=== PATIENT | female | born 1990 | race Caucasian/White ===

== ENCOUNTER 2016-07-22 15:20 | Emergency (ER) | payer SELFPAY ==
[~2016-07-22] VITALS: Ht 170.2 cm; Wt 66.0 kg
[2016-07-22 15:20] VITALS: Ht 170.2 cm; Wt 66.0 kg
[~2016-07-22 15:20] MED LIST: NO ROUTINE MEDS
[2016-07-22] MEDS ORDERED: PREN1TAB73 PO (15:54)
--- NOTE | 2016-07-22 16:02 | ERPDOC ---
Departure Disposition Decision Date: Jul 22, 2016 Disposition Decision Time: 17:22 (HAYLEY LU APRN) Disposition: 01 DISCHARGED HOME, SELF-CARE Impression Impression (KERWINHAYLEY SCHMITZ APRN) Impression: Primary Impression: Vaginal bleeding in Trimester: first trimester Qualified Codes: O46.91 - Antepartum hemorrhage, unspecified, first trimester Severity: Moderate (HAYLEY LU APRN) Condition: Stable Seen By: Mid-level only (HAYLEY LU APRN) Referrals: [facility] (Family) Patient Instructions: First Trimester Vaginal Bleed (ED) Problems/Meds/Labs Reviewed?: Yes Medications reviewed and manag: Yes (HAYLEY LU APRN) Additional Instructions: US today does show a live in the uterus. I do want you to establish with an NUT PROCESS HELPER when you are able to. Labs today are normal. Make sure that you are drinking plenty of fluids at home and resting. Pelvic rest until follow up with your NUT PROCESS HELPER which means nothing into the vagina until follow up including tampons or sexual intercourse. May use the promethazine as needed for nausea. Return to Er with severe abdominal pain or bleeding that is saturating more than 1 pad per hour. Follow up care ordered?: Yes Mental Status: Alert (HAYLEY LU APRN) Scripts Promethazine HCl (Promethazine HCl) 25 Mg Tablet 1 TAB PO Q8H Y for NAUSEA, #10 TAB 0 Refills Prov: KERWINHAYLEY SCHMITZ APRN 07/22/16 HPI - Female General Chief Complaint: Related Problems Stated Complaint: 8 WEEKS /SPOTTING Time Seen by Provider: 15:44 Source: patient Exam Limitations: no limitations (HAYLEY LU APRN) Time Seen by Provider: 15:44 (TAYLOR RICHARDSON MD) HPI - Female Initial Comments She presents to ER today for evaluation of spotting that started after she got out of the shower today. Her LMP was 05/27/16 and she has had positive testing at home. This would make her 7 weeks and 5 days. She is a with 3 miscarriages in the past. Has had some mild lower abdominal pain. Denies any urinary symptoms, vaginal discharge, or fever/chills. She has not established with an NUT PROCESS HELPER so far. Review of old charts does show blood type as A positive. Occurred At: home Onset: Gradual Duration: 1/2 hour Severity/Quality: sharpness (lower abdomen) Radiation: none Associated Symptoms: abdominal pain, DENIES: diaphoresis, dysuria, fever/chills , loss of bladder control, lower back pain, lumps, mass, nausea/vomiting, nocturia, polyuria, swelling, syncope, urinary frequency Hx of Similar Symptoms: No Is Pt now?: Yes Hx Last Menstrual Period: 05/27/16 : 5 Para: 1 (NOLD,HAYLEY N EXTENSION DIVISION DIRECTOR) Allergies: Coded Allergies: Penicillins (Verified Allergy, Severe, 09/14/15) amoxicillin (Verified Allergy, Unknown, 09/14/15) Past History Patient Surgical History section x1 (NOLD,HAYLEY N EXTENSION DIVISION DIRECTOR) Past Medical History Hx Echocardiogram: No Female: UTI Musculoskeletal: back pain Psychological: depression (NOLD,HAYLEY N EXTENSION DIVISION DIRECTOR) Surgical History Reproductive/: D&C, (NOLD,HAYLEY N EXTENSION DIVISION DIRECTOR) Family History Family PMH: FOUND: COPD (NOLD,HAYLEY N EXTENSION DIVISION DIRECTOR) Vaccines Hx Influenza Vaccination: Yes (2013) (NOLD,HAYLEY N EXTENSION DIVISION DIRECTOR) Social History # of Packs/Tins per Day: 1 # of Years: 8 Sexuality: male partner (NOLD,HAYLEY N EXTENSION DIVISION DIRECTOR) Review of Systems Constitutional Constitutional: DENIES: chills, dizziness, fatigue, fever, weakness (NOLD, HAYLEY N EXTENSION DIVISION DIRECTOR) Cardiovascular Cardiac: DENIES: chest pain, orthopnea Rhythm/Rate: DENIES: irregular beat, palpitations (NOLD,HAYLEY N EXTENSION DIVISION DIRECTOR) Pulmonary Respiratory: DENIES: cough, dyspnea, sputum, tachypnea (NOLD,HAYLEY N EXTENSION DIVISION DIRECTOR) GI Upper Abdomen: DENIES: nausea, pain, vomiting Lower Abdomen: pain, DENIES: constipation, diarrhea (NOLD,HAYLEY N EXTENSION DIVISION DIRECTOR) General: DENIES: discharge, dysuria, frequency, hematuria, urgency (NOLD, HAYLEY N EXTENSION DIVISION DIRECTOR) Integumentary Skin: DENIES: rash (NOLD,HAYLEY N EXTENSION DIVISION DIRECTOR) Neurological General: DENIES: headache, numbness, tingling, weakness (NOLD,HAYLEY N EXTENSION DIVISION DIRECTOR) Physical Exam General General Nourishment: well nourished, well developed, appears stated age, no acute distress, adult (HAYLEY LU APRN) Vitals and Pain First Documented Vital Signs Date Time Temp Pulse Resp B/P Pulse Ox O2 Delivery O2 Flow Rate FiO2 07/22/16 15:20 98.1 79 17 119/63 100 Room Air (TAYLOR RICHARDSON MD) Vitals and Pain Weight: Kilograms: 66.000 Height (feet): 5 Height (inches): 7.00 Triage Pain Scale: (HAYLEY LU APRN) Normal Exams: Neck: Full range of motion, without adenopathy, JVD, bruits or thyromegaly Chest/Resp: Clear all [place], with good airflow, and symmetry bilaterally CV: Regular rate and rhythm, without murmur or gallop, Pulses 2+ all extremities, capillary refill, <2 seconds all ext., no pedal edema noted Abdomen: Bowel sounds positive, soft, non-tender, non-distended, no hepatosplenomegaly, masses or bruits noted Lymphatic: No lymphadenopathy, or lymphedema noted Integumentary: No rashes, hives, or bruising noted Neurologic: Patient is alert, and oriented Psychiatric: Patient exhibits, appropriate attention, emotion and affect (HAYLEY LU APRN) Differential Diagnoses Considering: Ovarian Cyst, Ovarian Torsion, PID, Ectopic , New Diagnosis, , UTI (HAYLEY LU APRN) Progress Results/Orders Orders Procedure Category Date Status Time LAB 07/22/16 Complete Qualitative, Urine 15:43 Hcg-Quantitative LAB 07/22/16 Complete Cbc W/Auto LAB 07/22/16 Complete Diff-Reflex Manual Bmp - Basic Metabolic LAB 07/22/16 Complete Panel Ua, Dip Wreflex LAB 07/22/16 Complete Microsc & Kiln Burner 16:08 Us Ob Transvaginal US 07/22/16 Resulted (TAYLOR RICHARDSON MD) Lab Results Laboratory Tests Test 07/22/16 15:51 07/22/16 16:08 07/22/16 16:21 Urine Test Positive Urine Collection Type Urine Color Yellow Urine Turbidity Slt cldy Urine pH 6.5 Urine Specific [place] 1.025 Urine Protein Negative Urine Glucose (UA) Negative Urine Ketones Trace Urine Blood Negative Urine Nitrite Negative Urine Bilirubin Negative Urine Urobilinogen 0.2EU/DL Urine Leukocyte Esterase Negative Urinalysis Comment Microscopic not ind. White Blood Count 7.6T/MM3 Red Blood Count 3.88M/MM3 Hemoglobin 11.8GM/DL Hematocrit 34.6% Mean Corpuscular Volume 89.2UM3 Mean Corpuscular Hemoglobin 30.4UUG Mean Corpuscular Hemoglobin Concent 34.1GM/DL RDW Standard Deviation 37.5FL Platelet Count 139T/MM3 Mean Platelet Volume 12.0UM3 Immature Granulocyte % (Auto) 0.1% Neutrophils (%) (Auto) 69.8% Lymphocytes (%) (Auto) 21.6% Monocytes (%) (Auto) 6.9% Eosinophils (%) (Auto) 1.3% Basophils (%) (Auto) 0.3% Absolute Immature Granulocyte (auto 0.01T/MM3 Absolute Neutrophils (auto) 5.3T/MM3 Absolute Lymphocytes (auto) 1.6T/MM3 Absolute Monocytes (auto) 0.5T/MM3 Absolute Eosinophils (auto) 0.1T/MM3 Absolute Basophils (auto) 0.0T/MM3 Turbidity < 20 Sodium Level 142MEQ/L Potassium Level 4.1MEQ/L Chloride Level 108MEQ/L Carbon Dioxide Level 25MEQ/L Anion Gap 9MEQ/L Blood Urea Nitrogen 6.0MG/DL Creatinine 0.6MG/DL Glomerular Filtration Rate Calc 122 BUN/Creatinine Ratio 10RATIO Glucose Level 85MG/DL Calculated Osmolality 270MOSM/KG Calcium Level 9.1MG/DL Icterus Index < 2 Beta HCG, Quantitative 086595sMG/mL Chemistry Specimen Hemolysis < 15 (TAYLOR RICHARDSON MD) Progress Progress US does show a single live intrauterine . CBC and BMP are normal. U/A is negative. HCG is above 174,000. She does request medication for nausea. Will send her home with promethazine. F/U with NUT PROCESS HELPER as needed. (HAYLEY LU APRN) Ultrasound US : Reason for Exam: vaginal bleeding in Ultrasound: Pelvis US Interpretation: Normal (Single live intrauterine ) (HAYLEY LU APRN) HAYLEY LU APRN Jul 22, 2016 16:02 TAYLOR RICHARDSON MD Jul 24, 2016 10:20
--- NOTE | 2016-07-22 16:27 | NUR ---
REPORT RECEIVED FROM KELLY CHATMAN. CARE ASSUMED.
[2016-07-22 16:35] LABS: BASOPHILS % (AUTO) 0.3 % (0-2); EOSINOPHILS # (AUTO) 0.1 T/MM3 (0-0.5); EOSINOPHILS % (AUTO) 1.3 % (0-4); HCT - HEMATOCRIT 34.6 % (36-46); HGB - HEMOGLOBIN 11.8 GM/DL (12-16); IMMATURE GRANULOCYTE # (AUTO) 0.01 T/MM3 (0.00-0.03); IMMATURE GRANULOCYTE % (AUTO) 0.1 % (0.0-0.5); LYMPHOCYTES # (AUTO) 1.6 T/MM3 (1-4.8); LYMPHOCYTES % (AUTO) 21.6 % (23-45); MEAN CORPUSCULAR HGB 30.4 UUG (26-34); MEAN CORPUSCULAR HGB CONC(MCHC 34.1 GM/DL (31-37); MEAN CORPUSCULAR VOLUME 89.2 UM3 (80-100); MONOCYTES # (AUTO) 0.5 T/MM3 (0-0.8); MONOCYTES % (AUTO) 6.9 % (0-9.0); NEUTROPHILS #(AUTO)-ABSOLUTE 5.3 T/MM3 (1.8-7.7); NEUTROPHILS % (AUTO) 69.8 % (33-66); RED BLOOD COUNT 3.88 M/MM3 (4.00-5.20); WBC - WHITE BLOOD COUNT 7.6 T/MM3 (4.5-11.0)
[2016-07-22 16:38] LABS: ANION GAP 9 MEQ/L (5-15); BUN/CREATININE RATIO 10 RATIO (6-26); CALCIUM 9.1 MG/DL (8.4-10.2); CHLORIDE 108 MEQ/L (98-107); CO2 - CARBON DIOXIDE 25 MEQ/L (22-30); CREATININE 0.6 MG/DL (0.7-1.2); GLOMERULAR FILTRATION RATE 122; GLUCOSE 85 MG/DL (65-110); POTASSIUM 4.1 MEQ/L (3.6-5); SODIUM 142 MEQ/L (134-144)
[2016-07-22 16:39] LABS: BLOOD, URINE NEGATIVE (NEGATIVE); COLOR,URINE YELLOW (YELLOW); LEUKOCYTE ESTERASE ,URINE NEGATIVE (NEGATIVE); NITRITE,URINE NEGATIVE (NEGATIVE); UROBILINOGEN,URINE 0.2 EU/DL (NORMAL)
--- NOTE | 2016-07-22 16:48 | NUR ---
SONO COMPLETE IN ROOM AT THIS TIME.
[2016-07-22 17:19] LABS: HCG-QUANTITATIVE 174970 mIU/mL
[2016-07-22] MEDS ORDERED: PROM25TA7 PO (17:24)
[2016-07-22 17:31] VITALS: BP 103/59; PULSE 66; RESP 12; TEMP 98.8; O2SAT 100
--- NOTE | 2016-07-23 13:46 | DI ---
Indication: ITS.REASON: VAGINAL BLEEDING, PROCEDURE: US OB TRANSVAGINAL: Encounter: Initial Age by LMP is 8 weeks and 0 days. This correlates to an MARJORIE of March 03, 2017. Comparison: None PROCEDURE: US OB TRANSVAGINAL: Technique: Transabdominal and transvaginal pelvic sonographic imaging was performed. Findings: Imaging demonstrates a single living intrauterine gestation. A normal appearing yolk sac is identified. The appearance of the embryo and gestation is normal for the first trimester. cardiac activity was detected at a rate of 151 bpm. Both ovaries were identified and appear normal. The left measures 3.3 x 2.7 x 1.6 cm, and the right 3.4 x 2.3 x 2.2 cm. No abnormal adnexal mass. No free fluid. biometry: [place] rump length 2.04 cm: 8 weeks and 5 days. Impression: Single living intrauterine gestation with estimated gestational age of 8 weeks and 5 days by ultrasound. This correlates to an MARJORIE of February 24, 2017. There is a preliminary report by [employer] radiologic. .
== END 2016-07-22 17:33 | disposition home or self-care (01) ==
LOC: ED 15:20
DX: O26.851 Spotting complicating pregnancy, first trimester (principal); O99.331 Smoking (tobacco) complicating pregnancy, first trimester; Z3A.01 Less than 8 weeks gestation of pregnancy
CPT/HCPCS: 36415; 80048; 81003; 81025; 84702; 85025